=== PATIENT | female | born 1935 | race Caucasian/White ===

== ENCOUNTER 2018-01-11 18:25 | Inpatient (IN) | payer MEDICARE ==
[~2018-01-11] VITALS: Ht 165.1 cm; Wt 91.1 kg
[2018-01-11 19:43] LABS: HEMATOCRIT 42.9 % (36.0-46.0); HEMOGLOBIN 14.7 G/DL (11.9-15.5); MCHC 34.3 G/DL (30.0-36.0); MCV 93.5 FL (83-99); RBC DIS.WIDTH-SD 41.8 % (39-53); RED BLOOD COUNT 4.59 M/uL (3.80-5.20); WHITE BLOOD COUNT 5.2 K/uL (4.1-10.2)
[2018-01-11 19:57] LABS: CHLORIDE 102 mEq/L (99-109); POTASSIUM 3.2 mEq/L (3.7-5.4); SODIUM 140 mEq/L (136-147)
[2018-01-11 19:59] LABS: GLUCOSE 112 mg/dL (70-99)
[2018-01-11 20:03] LABS: GFR ESTIMATE (CALCULATED) 57 mL/min/; UREA NITROGEN (BUN) 14 mg/dL (9-23)
[2018-01-11 20:12] LABS: TROP-I INTERPRETATION NEGATIVE; TROPONIN-I 0.01 ng/mL (0.0-0.30)
[2018-01-11 20:32] LABS: PLAT.SUFFICIENCY ADEQUATE
[2018-01-11 20:33] LABS: PLATELET COUNT 192 K/uL (156-360)
[2018-01-11 21:31] LABS: D-DIMER ELISA < 150.00 ng/mLDDU (<230)
[2018-01-11] MEDS ORDERED: SLEEP AID50 MG PO (21:56)
[2018-01-11] MEDS ORDERED: ALPRAZOLAM0.5 MG PO (21:56)
[2018-01-12 01:15] VITALS: BP 196/79
[2018-01-12 03:27] LABS: TROP-I INTERPRETATION NEGATIVE; TROPONIN-I < 0.01 ng/mL (0.0-0.30)
[2018-01-12 03:29] VITALS: BP 131/60
[2018-01-12 06:32] LABS: ALBUMIN 3.6 g/dL (3.2-4.8); CHLORIDE 102 mEq/L (99-109); POTASSIUM 3.3 mEq/L (3.7-5.4); SODIUM 141 mEq/L (136-147)
[2018-01-12 06:35] LABS: GLUCOSE 115 mg/dL (70-99)
[2018-01-12 06:37] LABS: TOTAL BILIRUBIN 0.5 mg/dL (0.0-1.0)
[2018-01-12 06:38] LABS: ALKALINE PHOSPHATASE 62 IU/L (3-129); GFR ESTIMATE (CALCULATED) 57 mL/min/
[2018-01-12 06:39] LABS: UREA NITROGEN (BUN) 15 mg/dL (9-23)
[2018-01-12 06:40] LABS: AST (GOT) 19 IU/L (2-34)
[2018-01-12 06:41] LABS: HEMATOCRIT 40.8 % (36.0-46.0); HEMOGLOBIN 13.3 G/DL (11.9-15.5); MCH 30.9 PG (29.0-34.0); MCHC 32.6 G/DL (30.0-36.0); MCV 94.9 FL (83-99); PLATELET COUNT 189 K/uL (156-360); RBC DIS.WIDTH-CV 12.3 % (11.8-14.6); RBC DIS.WIDTH-SD 42.8 % (39-53)
[2018-01-12 06:41] LABS: ALT (GPT) 17 IU/L (3-49)
[2018-01-12 07:44] VITALS: BP 160/74
[2018-01-12 08:17] LABS: MAGNESIUM 2.1 mg/dL (1.3-2.7)
[2018-01-12 09:12] LABS: TROP-I INTERPRETATION NEGATIVE; TROPONIN-I < 0.01 ng/mL (0.0-0.30)
[2018-01-12 11:20] VITALS: BP 137/64
[2018-01-12 15:32] VITALS: BP 117/65
[2018-01-12 20:08] VITALS: BP 138/65
[2018-01-13] VITALS: BP 127/62
[2018-01-13 04:00] VITALS: BP 145/67
[2018-01-13 06:52] VITALS: BP 150/72
[2018-01-13 15:06] VITALS: BP 177/80
[2018-01-13 23:50] VITALS: BP 198/86
[2018-01-14 07:26] VITALS: BP 189/89
[2018-01-14 09:24] LABS: CHLORIDE 105 MEQ/L (99-109); GFR ESTIMATE (CALCULATED) 57 mL/min/; GLUCOSE 113 mg/dL (70-99); POTASSIUM 3.4 MEQ/L (3.7-5.4); SODIUM 141 MEQ/L (136-147); UREA NITROGEN (BUN) 17 mg/dL (9-23)
[2018-01-14 10:21] LABS: BASOPHIL (%) 0.4 % (0-1); EOSINOPHIL (%) 1.8 % (0-5); EOSINOPHIL COUNT 0.1 K/uL (0-0.3); HEMATOCRIT 42.6 % (36.0-46.0); HEMOGLOBIN 13.9 G/DL (11.9-15.5); IMMATURE GRANULOCYTE (%) 0.4 % (0.0-0.7); LYMPHOCYTE (%) 30.1 % (15-42); LYMPHOCYTE COUNT 1.4 K/uL (1.0-2.8); MCH 30.5 PG (29.0-34.0); MCHC 32.6 G/DL (30.0-36.0); MCV 93.4 FL (83-99); MONOCYTE (%) 7.1 % (3-12); MONOCYTE COUNT 0.3 K/uL (0-0.8); NEUTROPHIL (%) 60.2 % (45-76); NEUTROPHIL COUNT 2.7 K/uL (1.8-6.4); PLATELET COUNT 184 K/uL (156-360); RBC DIS.WIDTH-SD 41.9 % (39-53); RED BLOOD COUNT 4.56 M/uL (3.80-5.20); WHITE BLOOD COUNT 4.5 K/uL (4.1-10.2)
[2018-01-14] MEDS ORDERED: HYDROCHLOROTHIA25 MG PO (11:01)
[2018-01-14] MEDS ORDERED: PROAIR RESPICL90 MCG IH (11:02)
[2018-01-14] MEDS ORDERED: PREDNISONE20 MG PO (11:02)
[2018-01-14 13:01] VITALS: BP 186/90
[2018-01-14 13:37] VITALS: BP 170/88; BP 178/88
== END 2018-01-14 14:00 | disposition home or self-care (01) | DRG 202 ==
LOC: EME 18:25 → EDOF 22:15 → 5SOUTH 22:19 → ENRESERV 22:28 → 5SOUTH 01-12 00:51
PROVIDERS: Emergency Medicine; Internal Medicine; Physician Assistant
DX: J20.9 Acute bronchitis, unspecified (principal); E87.6 Hypokalemia; R91.1 Solitary pulmonary nodule; J45.901 Unspecified asthma with (acute) exacerbation; R09.02 Hypoxemia; E66.9 Obesity, unspecified; Z68.33 Body mass index [BMI] 33.0-33.9, adult; I10 Essential (primary) hypertension; Z90.710 Acquired absence of both cervix and uterus; Z87.442 Personal history of urinary calculi; J43.9 Emphysema, unspecified
CPT/HCPCS: 71046; 71250; 74176; 80048; 80053; 83605; 83735; 84484; 85025; 85027; 85379; 87040; 93005; 94010; 94640; 94640 76; 94760; 94799; 99202; 99281; 99285; J0456; J0696; J1644; J7030; J7512